=== PATIENT | male | born 1955 | race Caucasian/White ===

== ENCOUNTER 2024-08-09 00:02 | Observation (INO) ==
[2024-08-09 00:36] LABS: INR 1.17 (0.85-1.14)
[2024-08-09 00:45] LABS: Hematocrit 24.7 % (38-53); Hemoglobin 7.2 g/dL (13.2-16.3); Mean Corpuscular Hemoglobin 19.5 pg (27-33); Mean Corpuscular Hgb Conc 29.2 g/dL (31-36); Mean Corpuscular Volume 66.9 fL (80-97); Mean Platelet Volume 8.3 fL (7.5-11.2); Platelet Count 300 10^3/uL (150-450); Red Blood Count 3.69 10^6/uL (4.06-5.63); Red Cell Distribution Width 17.3 % (12-17); White Blood Count 8.2 10^3/uL (3.6-10.2)
[2024-08-09 01:05] LABS: Albumin 4.5 g/dL (3.2-5.2); Calcium 9.8 mg/dL (8.6-10.3); Creatinine, Serum 0.85 mg/dL (0.67-1.17); Globulin 2.3 g/dL (2-4); Potassium 3.7 mmol/L (3.5-5.0); Total Bilirubin 0.8 mg/dL (0.2-1.0); Total Protein 6.8 g/dL (6.4-8.9); eGFR CKD-EPI 92.9 (>60)
[2024-08-09 01:44] LABS: ABS Basophils 0.1 10^3/uL (0.0-0.1); ABS Eosinophils 1.4 10^3/uL (0.0-0.5); ABS Lymphocytes 0.7 10^3/uL (1.0-4.8); ABS Monocytes 0.7 10^3/uL (0.0-1.1); ABS Neutrophils 5.3 10^3/uL (1.5-7.6); Eosinophil % 17.5 %; Hypochromasia 1+; Lymphocyte % 8.5 %; Microcytosis 3+
[2024-08-09 02:03] LABS: High Sensitivity Troponin 1 Hr 131 pg/mL (<20)
[2024-08-09] MEDS: Iohexol 350 (CONTRAST) 500 ML MDV IV ONE (03:20)
[2024-08-09 05:39] LABS: Immature Retic Fraction 0.39
[2024-08-09 05:50] LABS: ABS Basophils 0.1 10^3/uL (0.0-0.1); ABS Eosinophils 0.6 10^3/uL (0.0-0.5); ABS Lymphocytes 0.5 10^3/uL (1.0-4.8); ABS Monocytes 0.7 10^3/uL (0.0-1.1); ABS Neutrophils 4.9 10^3/uL (1.5-7.6); Corrected Retic Count 1.1 % (0.5-1.5); Eosinophil % 9.2 %; Hematocrit 24.9 % (38-53); Hematocrit for Retic CNT 24.9 % (38-53); Hemoglobin 7.5 g/dL (13.2-16.3); Lymphocyte % 6.8 %; Mean Corpuscular Hemoglobin 20.5 pg (27-33); Mean Corpuscular Hgb Conc 30.2 g/dL (31-36); Mean Corpuscular Volume 68.1 fL (80-97); Mean Platelet Volume 8.2 fL (7.5-11.2); Platelet Count 265 10^3/uL (150-450); RBC Retic Count 3.65 10^6/ul (4.06-5.63); Red Blood Count 3.65 10^6/uL (4.06-5.63); White Blood Count 6.7 10^3/uL (3.6-10.2)
[2024-08-09 06:06] LABS: ALT 17 U/L (7-52); AST 24 U/L (13-39); Alkaline Phosphatase 158 U/L (35-149); Anion Gap 5 mmol/L (2-16); Blood Urea Nitrogen 20 mg/dL (6-24); CO2 Carbon Dioxide 26 mmol/L (22-32); Calcium 9.3 mg/dL (8.6-10.3); Chloride 102 mmol/L (101-111); Creatinine, Serum 0.75 mg/dL (0.67-1.17); Glucose 100 mg/dL (70-100); Magnesium 1.9 mg/dL (1.9-2.7); Potassium 4.3 mmol/L (3.5-5.0); Sodium 133 mmol/L (135-145); Total Bilirubin 0.9 mg/dL (0.2-1.0); eGFR CKD-EPI 96.5 (>60)
[2024-08-09 10:14] LABS: High Sensitivity Troponin 1 Hr 621 pg/mL (<20)
[2024-08-09] MEDS ORDERED: Heparin 5000 UNITS/ML 1 mL VIAL IV SCH (11:00)
[2024-08-09] MEDS: Heparin DRIP 25,000 UNITS BAG 25,000 UNITS/250 ML BAG IV SCH (11:32)
[2024-08-09 12:59] LABS: % Iron Saturation 6 % (15-55); .Transferrin 245 mg/dL (203-362); Iron < 20 ug/dL (50-212); Total Iron Binding Capacity 343 mcg/dL (250-450); Unsaturated Iron Binding 323 ug/dL
[2024-08-09 14:16] LABS: Ferritin 9.3 ng/mL (24-336)
[2024-08-09 15:15] LABS: Cholesterol 116 mg/dL; HDL Cholesterol 26.9 mg/dL; LDL Cholesterol 75 mg/dL; Triglycerides 70 mg/dL
[2024-08-09] MEDS: Ferric Gluconate IV 250 MG in NS 0.9% 250 ml 200 ML IVPB SCH (16:45)
[2024-08-09 22:41] LABS: Hematocrit 25.3 % (38-53); Hemoglobin 7.8 g/dL (13.2-16.3)
[2024-08-10 06:59] LABS: ABS Basophils 0.1 10^3/uL (0.0-0.1); ABS Eosinophils 1.4 10^3/uL (0.0-0.5); ABS Lymphocytes 0.5 10^3/uL (1.0-4.8); ABS Monocytes 0.8 10^3/uL (0.0-1.1); ABS Neutrophils 4.6 10^3/uL (1.5-7.6); Eosinophil % 18.7 %; Hematocrit 26.8 % (38-53); Hemoglobin 8.3 g/dL (13.2-16.3); Lymphocyte % 6.9 %; Mean Corpuscular Hgb Conc 30.8 g/dL (31-36); Mean Corpuscular Volume 68.1 fL (80-97); Mean Platelet Volume 8.2 fL (7.5-11.2); Platelet Count 287 10^3/uL (150-450); Red Blood Count 3.93 10^6/uL (4.06-5.63); White Blood Count 7.4 10^3/uL (3.6-10.2)
[2024-08-10 07:30] LABS: Calcium 9.1 mg/dL (8.6-10.3); Creatinine, Serum 0.82 mg/dL (0.67-1.17); Potassium 4.4 mmol/L (3.5-5.0); eGFR CKD-EPI 93.9 (>60)
[2024-08-10] MEDS: Sulfur Hexaflouride MICROSPHR 25 MG VIAL IV PRN (13:03)
[2024-08-11 06:35] LABS: ABS Basophils 0.2 10^3/uL (0.0-0.1); ABS Eosinophils 1.8 10^3/uL (0.0-0.5); ABS Lymphocytes 0.6 10^3/uL (1.0-4.8); ABS Monocytes 0.7 10^3/uL (0.0-1.1); ABS Neutrophils 4.2 10^3/uL (1.5-7.6); ABS Nucleated RBC 0.01 10^3/ul; Eosinophil % 24.2 %; Hematocrit 24.7 % (38-53); Hemoglobin 7.3 g/dL (13.2-16.3); Lymphocyte % 8.1 %; Mean Corpuscular Hemoglobin 20.5 pg (27-33); Mean Corpuscular Hgb Conc 29.7 g/dL (31-36); Mean Platelet Volume 8.6 fL (7.5-11.2); Nucleated Red Blood Cells % 0.1 %/100WBC (0.0-0.8); Platelet Count 283 10^3/uL (150-450); Red Blood Count 3.58 10^6/uL (4.06-5.63); Red Cell Distribution Width 18.2 % (12-17); White Blood Count 7.4 10^3/uL (3.6-10.2)
[2024-08-11 15:51] VITALS: BP 137/75
== END 2024-08-11 16:00 | disposition home or self-care (01) ==
LOC: ED 00:02 → EDHOLD 00:02 → MEDTELE 10:11
PROVIDERS: ADMIT Internal Medicine; ATTEND Internal Medicine